=== PATIENT | female | born 1995 | race American Indian/Alaskan Native ===

== ENCOUNTER 2019-10-13 18:17 | Emergency (ER) | payer SELFPAY ==
--- NOTE | 2019-10-13 19:57 | Emergency Department Report ---
Chief Complaint: Medical Clearance Stated Complaint: asthma Time Seen by Provider: 10/13/19 19:51 - HPI History of Present Illness: 24-year-old female with a history of asthma presents to the ED stating needing her albuterol inhaler because she ran out. Patient denies fe dante/chills/cough/shortness of breath or difficulty breathing - ROS Review of Systems: As noted in HPI - Exam Physical Exam: GENERAL: Alert and oriented x3, no apparent distress, Normal Gait, atraumatic. HEAD: Head is normocephalic and a-traumatic. NECK: Supple. Non edematous, No carotid bruits. No lymphadenopathy or thyromegaly. No C-spine tenderness LUNGS: Symetrical with respiration, No wheezing, no rales or crackles, CTAB. No use of accessory muscles HEART: S1, S2 present, regular rate and rhythm without murmur, no rubs, no gallops. Non tender to palpation SKIN: Warm and dry, No lesions, No ulceration or induration present. MSE screening note: Focused history and physical exam performed. Due to findings the following was ordered: ED Medical Decision Making - Medical Decision Making 24-year-old female presents with asthma exacerbation (Mild) ED course: Patient had no respiratory distress in the ED. Post treatment evaluation: No wheezing heard, no use of accessory muscles, I discussed with the patient to follow up with her primary care physician. I discussed with the patient will be going home on with albuterol inhaler as well as nebulizer Vital signs are normalized, patient is saturation at 99% on room air. I discussed with the patient is symptoms worsen to return to ED immediately. ED Disposition for MSE Clinical Impression: Asthma, Medication refill Disposition: DC-01 TO HOME OR SELFCARE Is pt being admited?: No Does the pt Need Aspirin: No Condition: Stable Instructions: Asthma (ED) Additional Instructions: Make sure to follow up with the primary care physician as discussed. Take all your medications as you've been prescribed. If you have any worsening symptoms or develop new symptoms please return to ED immediately. Prescriptions: predniSONE [Deltasone] 20 mg PO QDAY #5 tab Albuterol Mdi (or & Nicu Only) [ProAir HFA Inhaler] 2 puff IH QID PRN #8.5 gram PRN Reason: Shortness Of Breath Referrals: PRIMARY CARE, [Primary Care Provider] - 3-5 Days [facility] [Outside] - 3-5 Days [facility] [Outside] - 3-5 Days Forms: Work/School Release Form(ED) Time of Disposition: 19:55
[2019-10-13 20:02] VITALS: BP 107/66
== END 2019-10-13 20:12 | disposition home or self-care (01) ==
LOC: ED 18:17
DX: J45.909 Unspecified asthma, uncomplicated (principal); Z76.0 Encounter for issue of repeat prescription
CPT/HCPCS: 99282

== ENCOUNTER 2020-01-11 20:55 | Emergency (ER) | payer SELFPAY ==
[2020-01-11 22:31] VITALS: BP 112/68
--- NOTE | 2020-01-12 00:28 | Emergency Department Report ---
ED General Adult HPI - General Chief complaint: Medical Clearance Stated complaint: DIFFICULTY BREATHING Time Seen by Provider: 01/12/20 00:22 Source: patient Mode of arrival: Ambulatory Limitations: No Limitations - History of Present Illness Initial comments: 24-year-old female past medication asthma presents emerged department complaining of the dust at work causing her asthma to flareup causing her to utilize her inhaler for which she is not out and seeks a medication refill she had asthma exacerbation was brought to the ED but while sitting in the waiting room and using her inhaler states her symptoms have resolved. She reports no hemoptysis no hematemesis hematochezia she reports no chest pain no palpitation Radiation: non-radiation Consistency: constant Improves with: none Worsens with: none Associated Symptoms: denies: chest pain, loss of appetite, malaise, nausea/vomiting - Related Data Previous Rx's Medication Instructions Recorded Last Taken Type Albuterol Sulfate [Proventil Hfa] 1 - 2 puff IH Q6H PRN #1 hfa.aer.ad 08/13/19 Unknown Rx Azithromycin [Zithromax Z-YONATAN] 250 mg PO DAILY #6 tablet 08/13/19 Unknown Rx Benzonatate [Tessalon Perles] 100 mg PO Q8HR #30 capsule 08/13/19 Unknown Rx Prednisone [predniSONE 10 mg 10 mg PO .TAPER #21 tab.ds.pk 08/13/19 Unknown Rx (6-Day Pack, 21 Tabs)] Albuterol Mdi (or & Nicu Only) 2 puff IH QID PRN #8.5 gram 10/13/19 Unknown Rx [ProAir HFA Inhaler] predniSONE [Deltasone] 20 mg PO QDAY #5 tab 10/13/19 Unknown Rx Albuterol Mdi (or & Nicu Only) 1 puff IH Q4-6H PRN #1 inha 01/12/20 Unknown Rx [ProAir HFA Inhaler] Montelukast [Singulair] 10 mg PO QPM #14 tablet 01/12/20 Unknown Rx predniSONE [Deltasone] 20 mg PO QDAY #5 tab 01/12/20 Unknown Rx Allergies Allergy/AdvReac Type Severity Reaction Status Date / Time No Known Allergies Allergy Unverified 08/12/19 22:43 ED Review of Systems ROS: Stated complaint: DIFFICULTY BREATHING Other details as noted in HPI Comment: All other systems reviewed and negative ED Past Medical Hx - Past Medical History Previous Medical History?: Yes Hx Asthma: Yes - Surgical History Past Surgical History?: Yes Additional Surgical History: hip sx, elbow - Social History Smoking Status: Former Smoker Substance Use Type: None - Medications Home Medications: Home Medications Medication Instructions Recorded Confirmed Last Taken Type Albuterol Sulfate [Proventil Hfa] 1 - 2 puff IH Q6H PRN #1 hfa.aer.ad 08/13/19 Unknown Rx Azithromycin [Zithromax Z-YONATAN] 250 mg PO DAILY #6 tablet 08/13/19 Unknown Rx Benzonatate [Tessalon Perles] 100 mg PO Q8HR #30 capsule 08/13/19 Unknown Rx Prednisone [predniSONE 10 mg 10 mg PO .TAPER #21 tab.ds.pk 08/13/19 Unknown Rx (6-Day Pack, 21 Tabs)] Albuterol Mdi (or & Nicu Only) 2 puff IH QID PRN #8.5 gram 10/13/19 Unknown Rx [ProAir HFA Inhaler] predniSONE [Deltasone] 20 mg PO QDAY #5 tab 10/13/19 Unknown Rx Albuterol Mdi (or & Nicu Only) 1 puff IH Q4-6H PRN #1 inha 01/12/20 Unknown Rx [ProAir HFA Inhaler] Montelukast [Singulair] 10 mg PO QPM #14 tablet 01/12/20 Unknown Rx predniSONE [Deltasone] 20 mg PO QDAY #5 tab 01/12/20 Unknown Rx ED Physical Exam - General Limitations: No Limitations General appearance: alert, in no apparent distress - Head Head exam: Present: atraumatic, normocephalic - Eye Eye exam: Present: normal appearance - ENT ENT exam: Present: mucous membranes moist - Neck Neck exam: Present: normal inspection - Respiratory Respiratory exam: Present: normal lung sounds bilaterally. Absent: respiratory distress, wheezes, rales, rhonchi - Cardiovascular Cardiovascular Exam: Present: regular rate, normal rhythm. Absent: systolic murmur, diastolic murmur, rubs, gallop - GI/Abdominal GI/Abdominal exam: Present: soft, normal bowel sounds - Extremities Exam Extremities exam: Present: normal inspection - Back Exam Back exam: Present: normal inspection - Neurological Exam Neurological exam: Present: alert, oriented X3 - Psychiatric Psychiatric exam: Present: normal affect, normal mood - Skin Skin exam: Present: warm, dry, intact, normal color. Absent: rash ED Course Vital Signs 01/11/20 22:30 Temperature 98.7 F Pulse Rate 67 Respiratory 18 Rate Blood Pressure 112/68 O2 Sat by Pulse 100 Oximetry ED Medical Decision Making - Medical Decision Making No altered mental status, saddle respirations, belly breathing or other signs of impending ventilatory failure. No intubations or recent admissions to the hospital for asthma. Unlikely pneumonia, CHF, COPD, GERD Workup No treatment was given as symptoms have been resolved Therapies: Prednisone 50 mg PO. Albuterol nebulizer Reassessment: Patient improved with utilization of her inhaler and reports she has been better for the last 2-1/2 hours but does need a medication refill. Disposition: Discharge home with return precautions. Advised to follow up with primary care physician within next 24-48 hours. Aside from this acute exacerbation patient has been well controlled on baseline home regimen. Rx short steroid course, albuterol, Singulair, Flovent Critical care attestation.: If time is entered above; I have spent that time in minutes in the direct care of this critically ill patient, excluding procedure time. ED Disposition Clinical Impression: Asthma Disposition: TO HOME OR SELFCARE Is pt being admited?: No Does the pt Need Aspirin: No Condition: Stable Instructions: Asthma, Adult, Cough, Adult, [id number], How to Use a Dry Powder Inhaler, Asthma (ED) Prescriptions: predniSONE [Deltasone] 20 mg PO QDAY #5 tab Albuterol Mdi (or & Nicu Only) [ProAir HFA Inhaler] 1 puff IH Q4-6H PRN #1 inha PRN Reason: Cough Montelukast [Singulair] 10 mg PO QPM #14 tablet Referrals: LEONIDAS DUNCAN MD [Staff Physician] - 3-5 Days
== END 2020-01-12 00:45 | disposition home or self-care (01) ==
LOC: ED 20:55
DX: J45.909 Unspecified asthma, uncomplicated (principal); Z79.899 Other long term (current) drug therapy; Z98.890 Other specified postprocedural states; Z87.891 Personal history of nicotine dependence
CPT/HCPCS: 99282

== ENCOUNTER 2021-06-03 00:33 | Emergency (ER) | payer SELFPAY ==
--- NOTE | 2021-06-03 05:07 | Emergency Department Report ---
- General Chief Complaint: Adult Asthma Stated Complaint: ASTHMA Source: patient Mode of arrival: Ambulatory Limitations: No Limitations - History of Present Illness Initial Comments: Patient is a 26-year-old -[place] female with a history of asthma with frequent exacerbations presents to the ED for medication refill of her asthma medications after using all day albuterol inhaler 2 days ago. Patient states that she has also been having persistent nasal and sinus congestion with occasional wheezing and chest tightness. Patient states that she ran out of the medication although she still experiences nasal and sinus congestion due to pollen exposure. Patient denies dizziness, syncope, fever, chills, chest pain, shortness of breath, nausea and vomiting or abdominal pain, sore throat and he adache. MD Complaint: cough, rhinorrhea, nasal congestion, other (Wheezing) -: Sudden, days(s) (2) Severity: mild Severity scale (0 -10): 1 Quality: dull Consistency: intermittent Improves With: nothing Worsens With: nothing Context: other (Emma exposure) Associated Symptoms: denies other symptoms, rhinorrhea, nasal congestion, cough, shortness of breath. denies: chills, myalgias, diaphoresis, headache, sore throat, stiff neck, chest pain, abdominal pain, nausea, vomiting, diarrhea, dysuria, rash, confusion, weight loss, epistaxis, hoarseness, ear pain, other Treatments Prior to Arrival: none - Related Data Previous Rx's Medication Instructions Recorded Last Taken Type Azithromycin [Zithromax Z-YONATAN] 250 mg PO DAILY #6 tablet 08/13/19 Unknown Rx Prednisone [predniSONE 10 mg 10 mg PO .TAPER #21 tab.ds.pk 08/13/19 Unknown Rx (6-Day Pack, 21 Tabs)] Albuterol Mdi (or & Nicu Only) 2 puff IH QID PRN #8.5 gram 10/13/19 Unknown Rx [ProAir HFA Inhaler] Albuterol Mdi (or & Nicu Only) 1 puff IH Q4-6H PRN #1 inha 01/12/20 Unknown Rx [ProAir HFA Inhaler] predniSONE [Deltasone] 20 mg PO QDAY #5 tab 01/12/20 Unknown Rx Albuterol Sulfate [Proair 1 - 2 puff IH Q6H PRN #1 inh 06/03/21 Unknown Rx Respiclick] Albuterol Sulfate [Proventil Hfa] 1 - 2 puff IH Q6H PRN #1 hfa.aer.ad 06/03/21 Unknown Rx Benzonatate [Tessalon Perles] 100 mg PO Q8HR #30 capsule 06/03/21 Unknown Rx Montelukast [Singulair] 10 mg PO QPM #14 tablet 06/03/21 Unknown Rx predniSONE [Deltasone] 40 mg PO QDAY #20 tab 06/03/21 Unknown Rx Allergies Allergy/AdvReac Type Severity Reaction Status Date / Time No Known Allergies Allergy Unverified 08/12/19 22:43 ED Review of Systems ROS: Stated complaint: ASTHMA Other details as noted in HPI Constitutional: denies: chills, fever Eyes: denies: eye pain, eye discharge, vision change ENT: congestion. denies: ear pain, throat pain Respiratory: cough, shortness of breath. denies: wheezing Cardiovascular: denies: chest pain, palpitations Endocrine: no symptoms reported Gastrointestinal: denies: abdominal pain, nausea, vomiting, diarrhea Genitourinary: denies: urgency, dysuria, discharge Musculoskeletal: denies: back pain, joint swelling, arthralgia Skin: denies: rash, lesions Neurological: denies: headache, weakness, paresthesias Psychiatric: denies: anxiety, depression Hematological/Lymphatic: denies: easy bleeding, easy bruising ED Past Medical Hx - Past Medical History Hx Asthma: Yes - Surgical History Additional Surgical History: hip sx, elbow - Social History Smoking Status: Former Smoker Substance Use Type: None - Medications Home Medications: Home Medications Medication Instructions Recorded Confirmed Last Taken Type Azithromycin [Zithromax Z-YONATAN] 250 mg PO DAILY #6 tablet 08/13/19 Unknown Rx Prednisone [predniSONE 10 mg 10 mg PO .TAPER #21 tab.ds.pk 08/13/19 Unknown Rx (6-Day Pack, 21 Tabs)] Albuterol Mdi (or & Nicu Only) 2 puff IH QID PRN #8.5 gram 10/13/19 Unknown Rx [ProAir HFA Inhaler] Albuterol Mdi (or & Nicu Only) 1 puff IH Q4-6H PRN #1 inha 01/12/20 Unknown Rx [ProAir HFA Inhaler] predniSONE [Deltasone] 20 mg PO QDAY #5 tab 01/12/20 Unknown Rx Albuterol Sulfate [Proair 1 - 2 puff IH Q6H PRN #1 inh 06/03/21 Unknown Rx Respiclick] Albuterol Sulfate [Proventil Hfa] 1 - 2 puff IH Q6H PRN #1 hfa.aer.ad 06/03/21 Unknown Rx Benzonatate [Tessalon Perles] 100 mg PO Q8HR #30 capsule 06/03/21 Unknown Rx Montelukast [Singulair] 10 mg PO QPM #14 tablet 06/03/21 Unknown Rx predniSONE [Deltasone] 40 mg PO QDAY #20 tab 06/03/21 Unknown Rx ED Physical Exam - General Limitations: No Limitations General appearance: alert, in no apparent distress - Head Head exam: Present: atraumatic, normocephalic, normal inspection - Eye Eye exam: Present: normal appearance, PERRL, EOMI Pupils: Present: normal accommodation - ENT ENT exam: Present: normal orophraynx, mucous membranes moist, TM's normal bilaterally, normal external ear exam, other (Grossly congested nasal passages) - Neck Neck exam: Present: normal inspection, full ROM. Absent: tenderness - Respiratory Respiratory exam: Present: normal lung sounds bilaterally. Absent: respiratory distress, wheezes, rales, rhonchi, chest wall tenderness, accessory muscle use, prolonged expiratory - Cardiovascular Cardiovascular Exam: Present: regular rate, normal rhythm, normal heart sounds. Absent: systolic murmur, diastolic murmur, rubs, gallop - GI/Abdominal GI/Abdominal exam: Present: soft, normal bowel sounds. Absent: tenderness, guarding, rebound, hyperactive bowel sounds, hypoactive bowel sounds, organomegaly - Extremities Exam Extremities exam: Present: normal inspection, full ROM, normal capillary refill. Absent: tenderness - Back Exam Back exam: Present: normal inspection, full ROM. Absent: tenderness, CVA tenderness (R), CVA tenderness (L), muscle spasm, paraspinal tenderness, vertebral tenderness - Neurological Exam Neurological exam: Present: alert, oriented X3, CN II-XII intact, normal gait, reflexes normal - Psychiatric Psychiatric exam: Present: normal affect, normal mood - Skin Skin exam: Present: warm, dry, intact, normal color. Absent: rash ED Course Vital Signs 06/03/21 00:37 Temperature 97.9 F Pulse Rate 69 Respiratory 18 Rate Blood Pressure 99/59 O2 Sat by Pulse 98 Oximetry ED Medical Decision Making - Medical Decision Making This is a 26-year-old -[place] female with a history of asthma with frequent exacerbations presents to the ED for medication refill of her asthma medications after using all day albuterol inhaler 2 days ago. Patient states that she has also been having persistent nasal and sinus congestion with occasional wheezing and chest tightness. Patient states that she ran out of the medication although she still experiences nasal and sinus congestion due to pollen exposure. In the ED, patient is alert and oriented x3 and is not in any distress. Patient is hemodynamically stable. Physical exam is unremarkable. Patient was discharged home on medications and advised to follow-up with her primary care physician in 7 to 10 days for reevaluation. - Differential Diagnosis Asthma; bronchitis; URI; rhinitis; Critical care attestation.: If time is entered above; I have spent that time in minutes in the direct care of this critically ill patient, excluding procedure time. ED Disposition Clinical Impression: Acute bronchitis with asthma with acute exacerbation, Acute upper respiratory infection Disposition: 01 HOME / SELF CARE / HOMELESS Is pt being admited?: No Does the pt Need Aspirin: No Condition: Stable Instructions: Upper Respiratory Infection, Adult, [id number], Cough, Adult, [id number], Acute Bronchitis, Adult, [id number], Asthma, Adult, [id number] Additional Instructions: Take medication as advised, drink plenty of fluids and follow-up with your primary care physician in 7 to 10 days for reevaluation. Return to the ED immediately if symptoms get worse for Prescriptions: predniSONE [Deltasone] 40 mg PO QDAY #20 tab Albuterol Sulfate [Proair Respiclick] 1 - 2 puff IH Q6H PRN #1 inh PRN Reason: Wheezing Albuterol Sulfate [Proventil Hfa] 1 - 2 puff IH Q6H PRN #1 hfa.aer.ad PRN Reason: Dyspnea Montelukast [Singulair] 10 mg PO QPM #14 tablet Benzonatate [Tessalon Perles] 100 mg PO Q8HR #30 capsule Referrals: [facility] [Provider Group] - 3-5 Days Time of Disposition: 05:05 Print Language: SAMMARINESE
[2021-06-03 05:48] VITALS: BP 102/63
== END 2021-06-03 05:44 | disposition home or self-care (01) ==
LOC: ED 00:33
DX: J45.901 Unspecified asthma with (acute) exacerbation (principal); J06.9 Acute upper respiratory infection, unspecified; Z87.891 Personal history of nicotine dependence; Z79.899 Other long term (current) drug therapy
CPT/HCPCS: 99282